=== PATIENT | male | born 1990 ===

== ENCOUNTER 2022-12-24 21:12 | Emergency (ER) | payer OTHER ==
--- NOTE | 2022-12-24 21:16 | ERPHSYRPT ---
- History of Present Illness Time Seen by Provider: 12/24/22 21:16 Source: patient Exam Limitations: no limitations Physician History: This is an obese 32-year-old white male who in the past, has had high blood pressure issues but is currently not on any medication. Yesterday and today, patient has admitted to consuming alcohol. His last alcohol consumption was 4 hours ago. He also admits to using Adderall to "get high" yesterday. He has not used any today. Today he states that he feels very anxious and not himself. He has no visual changes. He has no headache. He has no chest pain. He is not short of breath. He has no abdominal pain. He has no nausea vomiting or diarrhea symptoms. Patient presents with sinus tachycardia with a heart rate of 121 bpm. He also has an initial systolic blood pressure of 173 and the diastolic blood pressure of 123 Timing/Duration: today Severity: moderate Associated Symptoms: denies symptoms Allergies/Adverse Reactions: cefaclor [From [employer]] Allergy (Verified 12/24/22 21:21) Home Medications: No Reportable Medications [No Reported Medications] 12/24/22 [History] Travel Risk - International Travel Have you traveled outside of the country in past 3 weeks: No - Coronavirus Screening Are you exhibiting any of the following symptoms?: No Close contact with a COVID-19 positive Pt in past 14-21 Days: No - Review of Systems Constitutional: No Symptoms Eyes: No Symptoms Ears, Nose, & Throat: No Symptoms Respiratory: No Symptoms Cardiac: No Symptoms Abdominal/Gastrointestinal: No Symptoms Genitourinary Symptoms: No Symptoms Musculoskeletal: No Symptoms Skin: No Symptoms Neurological: No Symptoms Psychological: Anxiety Endocrine: No Symptoms Hematologic/Lymphatic: No Symptoms Immunological/Allergic: No Symptoms All Other Systems: Reviewed and Negative - Past Medical History Pertinent Past Medical History: Yes - Past Surgical History Past Surgical History: Yes - Nursing Vital Signs Nursing Vital Signs: Initial Vital Signs Temperature 98.4 F 12/24/22 21:17 Pulse Rate 122 H 12/24/22 21:17 Respiratory Rate 20 12/24/22 21:17 Blood Pressure 175/123 12/24/22 21:17 O2 Sat by Pulse Oximetry 96 12/24/22 21:17 Pain Scale Pain Intensity 0 - Physical Exam General Appearance: mild distress, alert, anxiety, obese Eye Exam: PERRL/EOMI, eyes nml inspection Ears, Nose, Throat Exam: normal ENT inspection, moist mucous membranes Neck Exam: normal inspection, non-tender, supple, full range of motion Respiratory Exam: normal breath sounds, lungs clear, No chest tenderness, No respiratory distress Cardiovascular Exam: tachycardia Gastrointestinal/Abdomen Exam: soft, normal bowel sounds, No tenderness Rectal Exam: not done Back Exam: normal inspection, normal range of motion, No CVA tenderness, No vertebral tenderness Extremity Exam: normal inspection, normal range of motion, pelvis stable Neurologic Exam: alert, oriented x 3, cooperative, 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-XII nml as tested, normal mood/affect, nml cerebellar function, nml station & gait, sensation nml Skin Exam: normal color, warm, dry Lymphatic Exam: No adenopathy SpO2 Interpretation: normal O2 Delivery: Room Air - Course Nursing assessment & vital signs reviewed: Yes EKG Interpreted by Me: RATE (120), Sinus Tach, NORMAL AXIS, NORMAL INTERVALS, NORMAL QRS, NORMAL ST-T, Other (No acute ischemic changes on today's twelve-lead EKG) Ordered Tests: Active Orders 24 hr Category Date Time Status 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 12/24/22 21:31 Active EKG-ER Only STAT Care 12/24/22 21:21 Active IV Insertion STAT Care 12/24/22 21:21 Active Pulse Oximetry (ED) STAT Care 12/24/22 21:21 Active CBC W DIFF Stat Lab 12/24/22 21:32 Completed CMP Stat Lab 12/24/22 21:32 Completed CULTURE,URINE Stat Lab 12/24/22 21:30 Received ETHYL ALCOHOL Stat Lab 12/24/22 21:30 Completed MAGNESIUM Stat Lab 12/24/22 21:32 Completed TROPONIN Q4H Lab 12/24/22 21:32 Completed TROPONIN Q4H Lab 12/25/22 01:30 Ordered TROPONIN Q4H Lab 12/25/22 05:30 Ordered UA W/RFX UR CULTURE Stat Lab 12/24/22 21:30 Completed Urine Triage Profile Stat Lab 12/24/22 21:30 Completed Respiratory Therapy Assessment DAILY RT 12/24/22 21:50 Active Medication Summary Generic Name Dose Route Start Last Admin Trade Name Freq PRN Reason Stop Dose Admin Sodium Chloride 1,000 mls @ 999 mls/hr 12/24/22 22:15 12/24/22 22:18 Sodium Chloride 0.9% 1000 Ml IV 12/24/22 23:15 999 mls/hr .Q1H1M STA Administration Discontinued Medications Generic Name Dose Route Start Last Admin Trade Name Shahrzad PRN Reason Stop Dose Admin Albuterol Sulfate Confirm 12/24/22 21:37 Albuterol Sulfate 2.5 Mg/3 Ml Neb Administered 12/24/22 21:38 Dose 2.5 mg IH .STK-MED ONE Albuterol Sulfate 2.5 mg 12/24/22 21:50 12/24/22 21:40 Albuterol Sulfate 2.5 Mg/3 Ml Neb IH 12/24/22 21:51 2.5 mg STAT ONE Administration Sodium Chloride Confirm 12/24/22 22:16 Sodium Chloride 0.9% 1000 Ml Administered 12/24/22 22:17 Dose 1,000 mls @ ud .ROUTE .STK-MED ONE Labetalol HCl 10 mg 12/24/22 21:21 12/24/22 21:35 Labetalol Hcl 20 Mg/4 Ml Disp.Syringe IV 12/24/22 21:22 10 mg STAT ONE Administration Labetalol HCl Confirm 12/24/22 21:34 Labetalol Hcl 20 Mg/4 Ml Disp.Syringe Administered 12/24/22 21:35 Dose 20 mg IV .STK-MED ONE Levofloxacin 500 mg 12/24/22 21:42 12/24/22 21:46 Levofloxacin 500 Mg Tablet PO 12/24/22 21:43 Not Given STAT ONE Lorazepam 1 mg 12/24/22 21:21 12/24/22 21:35 Lorazepam 2 Mg/1 Ml 2 Mg Vial IV 12/24/22 21:22 1 mg STAT ONE Administration Lorazepam Confirm 12/24/22 21:34 Lorazepam 2 Mg/1 Ml 2 Mg Vial Administered 12/24/22 21:35 Dose 2 mg .ROUTE .STK-MED ONE Lab/Rad Data: Laboratory Result Diagrams 12/24/22 21:32 12/24/22 21:32 Laboratory Results 12/24/22 12/24/22 12/24/22 Range/Units 21:32 21:32 21:32 WBC 9.6 (4.0-10.5) x10^3/uL RBC 5.53 (4.1-5.6) x10^6/uL Hgb 18.0 (12.5-18.0) g/dL Hct 50.7 H (42-50) % MCV 91.7 (78-100) fL MCH 32.5 H (26-32) pg MCHC 35.5 (32-36) g/dL RDW 11.8 (11.5-14.0) % Plt Count 276 (150-450) x10^3/uL MPV 10.2 (7.5-11.0) fL Gran % 62.8 (36.0-66.0) % Immature Gran % (Auto) 0.3 (0.00-0.4) % Nucleat RBC Rel Count 0.0 (0.00-0.1) % Eos # (Auto) 0.12 (0-0.5) x10^3/uL Immature Gran # (Auto) 0.03 (0.00-0.03) x10^3u/L Absolute Lymphs (auto) 2.89 (1.0-4.6) x10^3/uL Absolute Monos (auto) 0.50 (0.0-1.3) x10^3/uL Absolute Nucleated RBC 0.00 (0.00-0.01) x10^3u/L Lymphocytes % 30.0 (24.0-44.0) % Monocytes % 5.2 (0.0-12.0) % Eosinophils % 1.2 (0.00-5.0) % Basophils % 0.5 (0.0-0.4) % Absolute Granulocytes 6.03 (1.4-6.9) x10^3/uL Basophils # 0.05 (0-0.4) x10^3/uL Sodium 140 (137-145) mmol/L Potassium 4.1 (3.5-5.1) mmol/L Chloride 102 (98-107) mmol/L Carbon Dioxide 21 L (22-30) mmol/L Anion Gap 20.4 H (5-15) MEQ/L BUN 12 (9-20) mg/dL Creatinine 0.76 (0.66-1.25) mg/dL Estimated GFR > 60.0 ML/MIN Glucose 128 H (74-106) mg/dL Calcium 9.1 (8.4-10.2) mg/dL Magnesium 2.0 (1.6-2.3) mg/dL Total Bilirubin 1.00 (0.2-1.3) mg/dL AST 185 H (17-59) U/L ALT 235 H (0-50) U/L Alkaline Phosphatase 115 (38-126) U/L Troponin I < 0.012 (0.000-0.034) ng/mL Serum Total Protein 8.6 H (6.3-8.2) g/dL Albumin 4.9 (3.5-5.0) g/dL Urine Color (Yellow) Urine Appearance (Clear) Urine pH (4.6-8.0) Ur Specific Leonard (1.005-1.030) Urine Protein (Negative) Urine Glucose (UA) (Negative) mg/dL Urine Ketones (Negative) Urine Blood (Negative) Urine Nitrite (Negative) Urine Bilirubin (Negative) Urine Urobilinogen (0.2) mg/dL Ur Leukocyte Esterase (Negative) U Hyaline Cast (Auto) (0-2) /LPF Urine Microscopic RBC (0-5) /HPF Urine Microscopic WBC (0-5) /HPF Ur Epithelial Cells (None Seen) /HPF Urine Bacteria (None Seen) /HPF Urine Culture Reflexed (NO) Urine Opiates Level (NEGATIVE) Ur Methadone (NEGATIVE) Urine Barbiturates (NEGATIVE) Ur Phencyclidine (PCP) (NEGATIVE) Urine Amphetamine (NEGATIVE) U Benzodiazepine Level (NEGATIVE) Urine Cocaine (NEGATIVE) Urine Marijuana (THC) (NEGATIVE) Ethyl Alcohol (0-10) mg/dL 12/24/22 12/24/22 12/24/22 Range/Units 21:30 21:30 21:30 WBC (4.0-10.5) x10^3/uL RBC (4.1-5.6) x10^6/uL Hgb (12.5-18.0) g/dL Hct (42-50) % MCV (78-100) fL MCH (26-32) pg MCHC (32-36) g/dL RDW (11.5-14.0) % Plt Count (150-450) x10^3/uL MPV (7.5-11.0) fL Gran % (36.0-66.0) % Immature Gran % (Auto) (0.00-0.4) % Nucleat RBC Rel Count (0.00-0.1) % Eos # (Auto) (0-0.5) x10^3/uL Immature Gran # (Auto) (0.00-0.03) x10^3u/L Absolute Lymphs (auto) (1.0-4.6) x10^3/uL Absolute Monos (auto) (0.0-1.3) x10^3/uL Absolute Nucleated RBC (0.00-0.01) x10^3u/L Lymphocytes % (24.0-44.0) % Monocytes % (0.0-12.0) % Eosinophils % (0.00-5.0) % Basophils % (0.0-0.4) % Absolute Granulocytes (1.4-6.9) x10^3/uL Basophils # (0-0.4) x10^3/uL Sodium (137-145) mmol/L Potassium (3.5-5.1) mmol/L Chloride (98-107) mmol/L Carbon Dioxide (22-30) mmol/L Anion Gap (5-15) MEQ/L BUN (9-20) mg/dL Creatinine (0.66-1.25) mg/dL Estimated GFR ML/MIN Glucose (74-106) mg/dL Calcium (8.4-10.2) mg/dL Magnesium (1.6-2.3) mg/dL Total Bilirubin (0.2-1.3) mg/dL AST (17-59) U/L ALT (0-50) U/L Alkaline Phosphatase (38-126) U/L Troponin I (0.000-0.034) ng/mL Serum Total Protein (6.3-8.2) g/dL Albumin (3.5-5.0) g/dL Urine Color Yellow (Yellow) Urine Appearance Clear (Clear) Urine pH 5.5 (4.6-8.0) Ur Specific Leonard 1.025 (1.005-1.030) Urine Protein Negative (Negative) Urine Glucose (UA) Negative (Negative) mg/dL Urine Ketones 15 A (Negative) Urine Blood Negative (Negative) Urine Nitrite Negative (Negative) Urine Bilirubin Negative (Negative) Urine Urobilinogen 1.0 A (0.2) mg/dL Ur Leukocyte Esterase Negative (Negative) U Hyaline Cast (Auto) NONE SEEN (0-2) /LPF Urine Microscopic RBC 0-2 (0-5) /HPF Urine Microscopic WBC 0-2 (0-5) /HPF Ur Epithelial Cells None Seen (None Seen) /HPF Urine Bacteria None Seen (None Seen) /HPF Urine Culture Reflexed NO (NO) Urine Opiates Level NEGATIVE (NEGATIVE) Ur Methadone NEGATIVE (NEGATIVE) Urine Barbiturates NEGATIVE (NEGATIVE) Ur Phencyclidine (PCP) NEGATIVE (NEGATIVE) Urine Amphetamine POSITIVE (NEGATIVE) U Benzodiazepine Level NEGATIVE (NEGATIVE) Urine Cocaine NEGATIVE (NEGATIVE) Urine Marijuana (THC) POSITIVE (NEGATIVE) Ethyl Alcohol 128 H (0-10) mg/dL - Progress Progress Note: 12/24/22 22:34 This patient's medical issue is 1 of moderate complexity. Level of complexity and the work-up performed based on review of the patient's past medical history, review the patient's medication list, review of the patient's drug allergy list, history of present illness and physical findings on examination. The work-up in this patient includes placement of intravenous line, infusion of 1 L of normal saline solution, urinalysis, urine drug screen, alcohol level, CBC, CMP, twelve-lead EKG, troponin level. I reviewed the work-up results. Clinically, the patient's symptoms improved nicely. Patient's heart rate is now in the 90s, his respiratory rate is 17, his systolic blood pressure in the 120s, he is afebrile. This patient is positive for marijuana, methamphetamines, and has a blood alcohol is elevated at 128. He also has evidence of alcohol induced hepatitis. He is feeling much improved. We will discharge him to home with instruction to follow-up with his primary care physician on 12/25/2022 to make arrangements for further evaluation and management. He is instructed to stop using alcohol. Counseled pt/family regarding: lab results, diagnosis, need for follow-up Medical Desision Making - Independent Historian Additional History obtained from: Spouse - Diagnostic Testing Diagnostic test were ordered, analyzed, and reviewed by me: Yes - Risk of complications Minimal Risk: Minimal risk of morbidity - Departure Departure Disposition: Home Clinical Impression: Anxiety about health, Hypertension, Amphetamine abuse, Marijuana use, Alcohol intoxication, Liver enzyme elevation Condition: Stable Critical Care Time: No Referrals: [facility] [Primary Care Provider] - Follow up/PCP as directed Additional Instructions: Call your primary care doctor tomorrow to make arrangements for follow-up appointment and for further evaluation management. Stop using alcohol, amphetamines, and marijuana. Discussed with your doctor restarting you on blood pressure medication.
[2022-12-24] MEDS ORDERED: Ativan 2 MG/1 ML VIAL IV ONE (21:21)
[2022-12-24] MEDS ORDERED: TRANDATE 20 MG/4 ML SYRINGE IV ONE ×2 (21:21→21:34)
[2022-12-24] MEDS ORDERED: Ativan 2 MG/1 ML VIAL ONE (21:34)
[2022-12-24 21:35] LABS: Absolute Neutrophil Ct (ANC) 6.03 x10^3/uL (1.4-6.9); BASOPHIL % 0.5 % (0.0-0.4); Basophil (Absolute #) 0.05 x10^3/uL (0-0.4); Eosinophil % 1.2 % (0.00-5.0); Eosinophil (Absolute #) 0.12 x10^3/uL (0-0.5); Hematocrit 50.7 % (42-50); IMMATURE GRAN # 0.03 x10^3u/L (0.00-0.03); IMMATURE GRAN % 0.3 % (0.00-0.4); Lymphocyte (Absolute #) 2.89 x10^3/uL (1.0-4.6); Mean Cell Volume 91.7 fL (78-100); Mean Corpuscular Hemoglobin 32.5 pg (26-32); Mean Corpuscular Hgb Concent. 35.5 g/dL (32-36); Mean Platelet Volume 10.2 fL (7.5-11.0); Monocytes % 5.2 % (0.0-12.0); Neutrophil % 62.8 % (36.0-66.0); Platelet Count 276 x10^3/uL (150-450); Red Blood Count 5.53 x10^6/uL (4.1-5.6); Red Cell Distribution Width 11.8 % (11.5-14.0); White Blood Count 9.6 x10^3/uL (4.0-10.5)
[2022-12-24] MEDS ORDERED: PROVENTIL 2.5 MG/3 ML NEB IH ONE ×2 (21:37→21:50)
[2022-12-24 21:42] LABS: Appearance Clear (Clear); Bacteria None Seen /HPF (None Seen); Bilirubin Negative (Negative); Blood Negative (Negative); Epithelial Cells None Seen /HPF (None Seen); Glucose, Urine Negative (Negative); Hyaline Casts NONE SEEN /LPF (0-2); Ketones 15 (Negative); Leukocyte Esterase Negative (Negative); Nitrite Negative (Negative); Ph 5.5 (4.6-8.0); Protein,Urine Dip Negative (Negative); RBC 0-2 /HPF (0-5); Specific Gravity 1.025 (1.005-1.030); WBC 0-2 /HPF (0-5)
[2022-12-24] MEDS ORDERED: Levofloxacin 500 MG Tablet PO ONE (21:42)
[2022-12-24 21:47] LABS: ALBUMIN 4.9 g/dL (3.5-5.0); ALKALINE PHOSPHATASE 115 U/L (38-126); ANION GAP 20.4 MEQ/L (5-15); BLOOD UREA NITROGEN 12 mg/dL (9-20); CHLORIDE 102 mmol/L (98-107); Calcium 9.1 mg/dL (8.4-10.2); Carbon Dioxide 21 mmol/L (22-30); Creatinine 1 0.76 mg/dL (0.66-1.25); EST GLOMERULAR FILTRATION RATE > 60.0 ML/MIN; Glucose 128 mg/dL (74-106); Potassium 4.1 mmol/L (3.5-5.1); SGOT/AST 185 U/L (17-59); SGPT/ALT 235 U/L (0-50); SODIUM 140 mmol/L (137-145); Total Protein 8.6 g/dL (6.3-8.2)
[2022-12-24 21:51] LABS: ADD URINE CULTURE? NO (NO)
[2022-12-24 21:52] LABS: Amphetamine,Urine POSITIVE (NEGATIVE); Barbiturate,Urine NEGATIVE (NEGATIVE); Benzodiazepine,Urine NEGATIVE (NEGATIVE); Cocaine,Urine NEGATIVE (NEGATIVE); Methadone,Urine NEGATIVE (NEGATIVE); Opiate,Urine NEGATIVE (NEGATIVE); PCP,Urine NEGATIVE (NEGATIVE); THC,Urine POSITIVE (NEGATIVE)
[2022-12-24] MEDS ORDERED: Sodium Chloride 0.9% 1000 ML 1,000 ML IV STA (22:15)
[2022-12-24] MEDS ORDERED: Sodium Chloride 0.9% 1000 ML 1,000 ML ONE (22:16)
[2022-12-24 23:40] VITALS: BP 130/84; PULSE 96; O2SAT 96
== END 2022-12-24 23:40 | disposition home or self-care (01) ==
LOC: ED 21:12
DX: F45.9 Somatoform disorder, unspecified (principal); I10 Essential (primary) hypertension; F15.10 Other stimulant abuse, uncomplicated; F10.929 Alcohol use, unspecified with intoxication, unspecified; Y90.6 Blood alcohol level of 120-199 mg/100 ml; F12.90 Cannabis use, unspecified, uncomplicated; R74.8 Abnormal levels of other serum enzymes
CPT/HCPCS: 36000; 36415; 80053; 80307; 81001; 82077; 83735; 84484; 85025; 87086; 93005; 93041; 94640; 94760; 96360; 96374; 96375; 99284; J2060; J7609; A9270-GY